=== PATIENT | female | born 1990 | race Hispanic/Latino ===

== ENCOUNTER 2018-06-15 06:08 | Emergency (ER) | payer SELFPAY ==
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
[2018-06-15 09:36] LABS: Urine Blood 1+ (NEG); Urine Glucose NEGATIVE (NEG); Urine Protein NEGATIVE (NEG)
== END 2018-06-15 08:30 | disposition home or self-care (01) ==
LOC: ER 06:08
DX: S39.012A Strain of muscle, fascia and tendon of lower back, initial encounter (principal); S16.1XXA Strain of muscle, fascia and tendon at neck level, initial encounter; T70.0XXA Otitic barotrauma, initial encounter; V49.40XA Driver injured in collision with unspecified motor vehicles in traffic accident, initial encounter; Z72.0 Tobacco use
CPT/HCPCS: 70450; 72125; 81003; 81025; 99284

== ENCOUNTER 2018-09-21 06:04 | Emergency (ER) | payer SELFPAY ==
[2018-09-21] MEDS ORDERED: NEOMY/POLY/HC 1% OTIC DROPS ONE (06:45)
[2018-09-21] MEDS ORDERED: predniSONE 20 MG TAB ONE (06:46)
[2018-09-21] MEDS ORDERED: FAMOTIDINE 20 MG TAB ONE (06:46)
--- NOTE | 2018-09-21 06:59 | EDPHYS ---
Physician Documentation [facility] Name: Federico Carpio Age: 28 yrs Sex: Female : 1990 Arrival Date: 09/21/2018 Time: 06:10 Bed 5 Private MD: ED Physician Cortez Robison HPI: 09/21 06:47 This 28 yrs old Female presents to ER via Ambulatory with complaints of Sore snw Throat. 06:47 The patient presents with sore throat. The patient describes throat pain as raw. Onset: snw The symptoms/episode began/occurred gradually, 3 day(s) ago. Severity of symptoms: At their worst the symptoms were moderate. Associated signs and symptoms: Pertinent positives: fever to 102 for last two days. The patient has experienced similar episodes in the past. The patient has not recently seen a physician. 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 - Social history:: Smoking status: Patient uses tobacco products, denies chronic smoking, but will smoke occasionally. - Ebola Screening: : No symptoms or risks identified at this time. ROS: 06:45 Constitutional: Negative for fever, chills, and weight loss, Eyes: Negative for injury, snw pain, redness, and discharge, Neck: Negative for injury, pain, and swelling, Cardiovascular: Negative for chest pain, palpitations, and edema, Abdomen/GI: Negative for abdominal pain, nausea, vomiting, diarrhea, and constipation, Back: Negative for injury and pain, : Negative for injury, bleeding, discharge, and swelling, MS/Extremity: Negative for injury and deformity, Skin: Negative for injury, rash, and discoloration, Neuro: Negative for headache, weakness, numbness, tingling, and seizure. 06:45 ENT: Positive for ear pain, sore throat. 06:45 Respiratory: Positive for cough. Exam: 06:39 Head/Face: Normocephalic, atraumatic. Eyes: Pupils equal round and reactive to light, snw extra-ocular motions intact. Lids and lashes normal. Conjunctiva and sclera are non-icteric and not injected. Cornea within normal limits. Periorbital areas with no swelling, redness, or edema. ENT: Nares patent. No nasal discharge, no septal abnormalities noted. Tympanic membranes are normal and external auditory canals are clear. Oropharynx with no redness, swelling, or masses, exudates, or evidence of obstruction, uvula midline. Mucous membranes moist. Neck: Trachea midline, no thyromegaly or masses palpated, and no cervical lymphadenopathy. Supple, full range of motion without nuchal rigidity, or vertebral point tenderness. No Meningismus. Chest/axilla: Normal chest wall appearance and motion. Nontender with no deformity. No lesions are appreciated. Cardiovascular: Regular rate and rhythm with a normal S1 and S2. No gallops, murmurs, or rubs. Normal PMI, no JVD. No pulse deficits. 06:39 ENT: Nares patent. No nasal discharge, no septal abnormalities noted. Tympanic membranes are normal to right, left wtih rupture and external auditory canals are clear to right, left with purulent, slightly bloody dc. Oropharynx with mild redness, no swelling, or masses, exudates, or evidence of obstruction, uvula midline. Mucous membranes moist. Abdomen/GI: Soft, non-tender, with normal bowel sounds. No distension or tympany. No guarding or rebound. No evidence of tenderness throughout. Back: No spinal tenderness. No costovertebral tenderness. Full range of motion. Skin: Warm, dry with normal turgor. Normal color with no rashes, no lesions, and no evidence of cellulitis. MS/ Extremity: Pulses equal, no cyanosis. Neurovascular intact. Full, normal range of motion. Neuro: Awake and alert, GCS 15, oriented to person, place, time, and situation. Cranial nerves II-XII grossly intact. Motor strength 5/5 in all extremities. Sensory grossly intact. Cerebellar exam normal. Normal gait. 06:39 Constitutional: The patient appears alert, uncomfortable. 06:39 Respiratory: the patient does not display signs of respiratory distress, Respirations: normal, Breath sounds: are clear throughout, hoarse, harsh cough. Vital Signs: 06:16 BP 139 / 98; Pulse 77; Resp 16; Temp 98.6(O); Pulse Ox 98% on R/A; Weight 61.23 kg (R); ak1 Height 5 ft. 3 in. (160.02 cm) (R); Pain 10/10; 06:16 Body Mass Index 23.91 (61.23 kg, 160.02 cm) ak1 MDM: 06:30 Patient medically screened. snw 07:00 Data reviewed: vital signs, nurses notes. Data interpreted: Pulse oximetry: on room air snw is 98 %. Interpretation: normal. Counseling: I had a detailed discussion with the patient and/or guardian regarding: the historical points, exam findings, and any diagnostic results supporting the discharge/admit diagnosis, the presence of at least one elevated blood pressure reading (>120/80) during this emergency department visit, lab results, the need for further work-up and treatment in the hospital, to return to the emergency department if symptoms worsen or persist or if there are any questions or concerns that arise at home. Special discussion: I have referred the patient to see his PCP for further evaluation of high blood pressure. Based on the history and exam findings, there is no indication for further emergent testing or inpatient evaluation. I discussed with the patient/guardian the need to see the primary care provider for further evaluation of the symptoms. 09/21 06:28 Order name: Flu; Complete Time: 14:06 tl2 09/21 06:28 Order name: Strep; Complete Time: 06:58 tl2 09/21 06:58 Order name: Throat Culture EDMS Administered Medications: 06:42 Drug: predniSONE 40 mg Route: PO; ak1 06:59 Follow up: Response: No adverse reaction ak1 06:42 Drug: Pepcid 20 mg Route: PO; ak1 06:59 Follow up: Response: No adverse reaction ak1 06:42 Drug: Cortisporin Drops 4 drops Route: Otic; Site: left ear; ak1 07:00 Follow up: Response: No adverse reaction ak1 Disposition: 09/21/18 06:59 Discharged to Home. Impression: Acute bronchitis, Acute suppurative otitis media with spontaneous rupture of ear drum - left. - Condition is Stable. - Discharge Instructions: Acute Bronchitis, Adult, Fever, Adult, Hypertension, Eardrum Perforation, [id number], Rehydration, Adult. - Prescriptions for Zyrtec 10 mg Oral Tablet - take 1 tablet by ORAL route once daily As needed; 20 tablet. Prednisone 20 mg Oral Tablet - take 2 tablet by ORAL route once daily for 5 days; 10 tablet. Albuterol Sulfate 90 mcg/actuation - inhale 1-2 puff by INHALATION route every 4-6 hours; 1 Inhaler. - Work release form, Medication Reconciliation Form, Thank You Letter, Antibiotic Education, Prescription Opioid Use form. - Follow up: Private Physician; When: 2 - 3 days; Reason: Recheck today's complaints, Continuance of care, Re-evaluation by your physician. Follow up: Emergency Department; When: As needed; Reason: Worsening of condition. Addendum: 09/29/2018 06:34 Co-signature as Attending Physician, Cortez Robison MD. g s Signatures: Dispatcher [employer] EDMS Felicia Lemus, ELIAS-C SERVICES EXECUTIVE-Csnw Linnea Graves, RN RN ak1 Rowan Reese RN RN hb Cortez Robison MD MD Corrections: (The following items were deleted from the chart) 09/21 07:13 06:59 09/21/2018 06:59 Discharged to Home. Impression: Acute bronchitis; Acute hb suppurative otitis media with spontaneous rupture of ear drum - left. Condition is Stable. Forms are Medication Reconciliation Form, Thank You Letter, Antibiotic Education, Prescription Opioid Use. Follow up: Private Physician; When: 2 - 3 days; Reason: Recheck today's complaints, Continuance of care, Re-evaluation by your physician. Follow up: Emergency Department; When: As needed; Reason: Worsening of condition. snw
--- NOTE | 2018-09-21 06:59 | ER ---
Nurse's Notes [facility] Name: Federico Carpio Age: 28 yrs Sex: Female : 1990 Arrival Date: 09/21/2018 Time: 06:10 Bed 5 Private MD: Diagnosis: Acute bronchitis;Acute suppurative otitis media with spontaneous rupture of ear drum-left Presentation: 09/21 06:17 Presenting complaint: Patient states: throat pain X3 days, nasal drainage, cough, ak1 bilateral ears "stopped up". Transition of care: patient was not received from another setting of care. Onset of symptoms is unknown. Risk Assessment: Do you want to hurt yourself or someone else? Patient reports no desire to harm self or others. Initial Sepsis Screen: Does the patient meet any 2 criteria? No. Patient's initial sepsis screen is negative. Does the patient have a suspected source of infection? No. Patient's initial sepsis screen is negative. Care prior to arrival: None. 06:17 Acuity: ANTONIO 4 ak1 06:17 Method Of Arrival: Ambulatory ak1 Triage Assessment: 06:19 General: Appears in no apparent distress. Behavior is calm, cooperative. Pain: ak1 Complains of pain in throat. EENT: Parent/caregiver reports the patient having pain throat pain nasal discharge. Neuro: No deficits noted. Cardiovascular: No deficits noted. Respiratory: Reports cough that is dry. GI: No signs and/or symptoms were reported involving the gastrointestinal system. : No signs and/or symptoms were reported regarding the genitourinary system. Derm: No signs and/or symptoms reported regarding the dermatologic system. Musculoskeletal: No signs and/or symptoms reported regarding the musculoskeletal system. 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 - Social history:: Smoking status: Patient uses tobacco products, denies chronic smoking, but will smoke occasionally. - Ebola Screening: : No symptoms or risks identified at this time. Screenin:21 Abuse screen: Denies threats or abuse. Denies injuries from another. Nutritional ak1 screening: No deficits noted. Tuberculosis screening: No symptoms or risk factors identified. Fall Risk None identified. Assessment: 06:22 Respiratory: Airway is patent Respiratory effort is even, unlabored. ak1 06:22 Respiratory: Breath sounds are clear. EENT: Throat is clear. ak1 06:22 Reassessment: Patient appears in no apparent distress at this time. No changes from ak1 previously documented assessment. see triage assessment. Vital Signs: 06:16 BP 139 / 98; Pulse 77; Resp 16; Temp 98.6(O); Pulse Ox 98% on R/A; Weight 61.23 kg (R); ak1 Height 5 ft. 3 in. (160.02 cm) (R); Pain 10/10; 06:16 Body Mass Index 23.91 (61.23 kg, 160.02 cm) ak1 ED Course: 06:10 Patient arrived in ED. ag3 06:14 Cortez Robison MD is Attending Physician. gs 06:15 Linnea Graves, RN is Primary Nurse. ak1 06:18 Triage completed. ak1 06:19 Arm band placed on Patient placed in an exam room, on a stretcher, on pulse oximetry, ak1 Patient notified of wait time. 06:21 Patient has correct armband on for positive identification. Bed in low position. Call ak1 light in reach. Side rails up X 1. Pulse ox on. NIBP on. 06:30 Felicia Lemus FNP-C is PHCP. snw 07:12 No provider procedures requiring assistance completed. Patient did not have IV access hb during this emergency room visit. Administered Medications: 06:42 Drug: predniSONE 40 mg Route: PO; ak1 06:59 Follow up: Response: No adverse reaction ak1 06:42 Drug: Pepcid 20 mg Route: PO; ak1 06:59 Follow up: Response: No adverse reaction ak1 06:42 Drug: Cortisporin Drops 4 drops Route: Otic; Site: left ear; ak1 07:00 Follow up: Response: No adverse reaction ak1 Outcome: 06:59 Discharge ordered by . snw 07:12 Discharged to home ambulatory. hb 07:12 Condition: stable 07:12 Discharge instructions given to patient, Instructed on discharge instructions, follow up and referral plans. medication usage, Demonstrated understanding of instructions, follow-up care, medications, Prescriptions given X 3. 07:13 Patient left the ED. hb Signatures: Felicia Lemus, SUBSTITUTE CROSSING GUARD-C SUBSTITUTE CROSSING GUARD-Csnw Linnea Graves RN RN ak1 Rowan Reese RN RN Cortez Camacho MD MD Tasneem Royal3
== END 2018-09-21 07:13 | disposition home or self-care (01) ==
LOC: ER 06:04
DX: J20.9 Acute bronchitis, unspecified (principal); H66.012 Acute suppurative otitis media with spontaneous rupture of ear drum, left ear; Z72.0 Tobacco use
CPT/HCPCS: 87070; 87081; 87804; 99283; J7512

== ENCOUNTER 2018-12-23 10:15 | Emergency (ER) | payer SELFPAY ==
--- NOTE | 2018-12-23 12:14 | EDPHYS ---
Physician Documentation [facility] Name: Federico Carpio Age: 28 yrs Sex: Female : 1990 Arrival Date: 12/23/2018 Time: 10:17 Bed 11 Private MD: ED Physician Santiago Owusu HPI: 12/23 12:10 This 28 yrs old Female presents to ER via Ambulatory with complaints of kb Abscess. 12:10 The patient presents with an abscess of the left labia majora and right labia majora. kb Description: draining, painful. Onset: The symptoms/episode began/occurred 3 week(s) ago. Possible cause(s): unknown. Associated signs and symptoms: Pertinent positives: drainage, pain. Modifying factors: the symptoms are alleviated by nothing, the symptoms are aggravated by pressure, squeezing the lesion and expressing the contents, touching. Severity of symptoms: At their worst the symptoms were moderate, in the emergency department the symptoms are unchanged. 12:12 The patient has not experienced similar symptoms in the past. The patient has not kb recently seen a physician. 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 - Social history:: Smoking status: Patient uses tobacco products, denies chronic smoking, but will smoke occasionally. - Ebola Screening: : No symptoms or risks identified at this time. ROS: 12:08 Constitutional: Negative for fever, chills, and weight loss, Cardiovascular: Negative kb for chest pain, palpitations, and edema, Respiratory: Negative for shortness of breath, cough, wheezing, and pleuritic chest pain, Abdomen/GI: Negative for abdominal pain, nausea, vomiting, diarrhea, and constipation, Back: Negative for injury and pain, MS/Extremity: Negative for injury and deformity, Neuro: Negative for headache, weakness, numbness, tingling, and seizure. 12:08 Skin: Positive for abscess, of the right labia majora, left labia majora and left labia minora. Exam: 12:09 Constitutional: This is a well developed, well nourished patient who is awake, alert, kb and in no acute distress. Head/Face: Normocephalic, atraumatic. Chest/axilla: Normal chest wall appearance and motion. Nontender with no deformity. No lesions are appreciated. Cardiovascular: Regular rate and rhythm with a normal S1 and S2. No gallops, murmurs, or rubs. Normal PMI, no JVD. No pulse deficits. Respiratory: Lungs have equal breath sounds bilaterally, clear to auscultation and percussion. No rales, rhonchi or wheezes noted. No increased work of breathing, no retractions or nasal flaring. Abdomen/GI: Soft, non-tender, with normal bowel sounds. No distension or tympany. No guarding or rebound. No evidence of tenderness throughout. MS/ Extremity: Pulses equal, no cyanosis. Neurovascular intact. Full, normal range of motion. Neuro: Awake and alert, GCS 15, oriented to person, place, time, and situation. Cranial nerves II-XII grossly intact. Motor strength 5/5 in all extremities. Sensory grossly intact. Cerebellar exam normal. Normal gait. 12:09 : Pelvic Exam: External exam: reveals ulcerations on external genitalia, Speculum exam: no bleeding is noted, discharge, is not appreciated, the family/significant other was present for the exam. Vital Signs: 10:29 BP 102 / 74; Pulse 84; Resp 16; Temp 97.8; Pulse Ox 100% on R/A; Weight 59.87 kg; la1 Height 5 ft. 3 in. (160.02 cm); Pain 10/10; 10:29 Body Mass Index 23.38 (59.87 kg, 160.02 cm) la1 MDM: 11:26 Patient medically screened. kb 12:07 Data reviewed: vital signs, nurses notes. Data interpreted: Pulse oximetry: on room air kb is 100 %. Interpretation: normal. Counseling: I had a detailed discussion with the patient and/or guardian regarding: the historical points, exam findings, and any diagnostic results supporting the discharge/admit diagnosis, the need for outpatient follow up, a family practitioner, to return to the emergency department if symptoms worsen or persist or if there are any questions or concerns that arise at home. ED course: Cultures and HSV swab obtained. Pt educated that results will take a few days to come back. . Administered Medications: 12:26 Drug: KeFLEX 500 mg Route: PO; hb 12:26 Follow up: Response: Medication administered at discharge. hb Disposition: 12/23/18 12:13 Discharged to Home. Impression: Ulceration of vulva. - Condition is Stable. - Discharge Instructions: Genital Herpes, Sexually Transmitted Disease, [id number]. - Prescriptions for Keflex 500 mg Oral Capsule - take 1 capsule by ORAL route every 8 hours for 7 days; 21 capsule. - Medication Reconciliation Form, Thank You Letter, Antibiotic Education, Prescription Opioid Use form. - Follow up: Emergency Department; When: As needed; Reason: Worsening of condition. Follow up: Private Physician; When: 2 - 3 days; Reason: Recheck today's complaints, Continuance of care, Re-evaluation by your physician. Addendum: 12/25/2018 07:35 Co-signature as Attending Physician, Santiago Owusu MD I agree with the assessment and c bourgeois plan of care. Signatures: Dispatcher [employer] EDAsuncion Butler, ELIAS-C TINNER HELPER-Santaigo Lorenz MD MD cha Attema, Lee, RN RN la1 Rowan Reese RN RN Corrections: (The following items were deleted from the chart) 12/23 12:30 12:13 12/23/2018 12:13 Discharged to Home. Impression: Ulceration of vulva. Condition hb is Stable. Forms are Medication Reconciliation Form, Thank You Letter, Antibiotic Education, Prescription Opioid Use. Follow up: Emergency Department; When: As needed; Reason: Worsening of condition. Follow up: Private Physician; When: 2 - 3 days; Reason: Recheck today's complaints, Continuance of care, Re-evaluation by your physician. kb
--- NOTE | 2018-12-23 12:14 | ER ---
[facility]'s [facility] Name: Federico Carpio Age: 28 yrs Sex: Female : 1990 Arrival Date: 12/23/2018 Time: 10:17 Bed 11 Private MD: Diagnosis: Ulceration of vulva Presentation: 12/23 10:28 Presenting complaint: Patient states: I have a staff infection "down there" for the la1 last 3 days, pt reports no drainage, states approximately dime sized. Transition of care: patient was not received from another setting of care. Onset of symptoms was December 23, 2018. Risk Assessment: Do you want to hurt yourself or someone else? Patient reports no desire to harm self or others. Initial Sepsis Screen: Does the patient meet any 2 criteria? No. Patient's initial sepsis screen is negative. Does the patient have a suspected source of infection? No. Patient's initial sepsis screen is negative. Care prior to arrival: None. 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 - Social history:: Smoking status: Patient uses tobacco products, denies chronic smoking, but will smoke occasionally. - Ebola Screening: : No symptoms or risks identified at this time. Screenin:00 Abuse screen: Denies threats or abuse. Denies injuries from another. Nutritional hb screening: No deficits noted. Tuberculosis screening: No symptoms or risk factors identified. Fall Risk None identified. Assessment: 12:00 General: Appears in no apparent distress. Behavior is calm, cooperative. Pain: Pain hb currently is 10 out of 10 on a pain scale. Neuro: Level of Consciousness is awake, alert, obeys commands, Oriented to person, place, time, situation. Cardiovascular: Capillary refill < 3 seconds Patient's skin is warm and dry. Respiratory: Airway is patent Respiratory effort is even, unlabored, Respiratory pattern is regular, symmetrical. GI: No signs and/or symptoms were reported involving the gastrointestinal system. : Reports groin pain. EENT: No signs and/or symptoms were reported regarding the EENT system. Derm: Skin has lesions on labia. Musculoskeletal: No signs and/or symptoms reported regarding the musculoskeletal system. Vital Signs: 10:29 BP 102 / 74; Pulse 84; Resp 16; Temp 97.8; Pulse Ox 100% on R/A; Weight 59.87 kg; la1 Height 5 ft. 3 in. (160.02 cm); Pain 06/28; 10:29 Body Mass Index 23.38 (59.87 kg, 160.02 cm) la1 ED Course: 10:17 Patient arrived in ED. rg4 10:28 Triage completed. la1 10:29 Arm band placed on left wrist. la1 11:25 Asuncion Tyson [facility]-C [facility]. kb 11:25 Santiago Owusu MD is Attending Physician. kb 12:00 Patient has correct armband on for positive identification. Bed in low position. Call hb light in reach. 12:26 Rowan Reese, RN is Primary Nurse. hb 12:29 No provider procedures requiring assistance completed. Patient did not have IV access hb during this emergency room visit. Administered Medications: 12:26 Drug: KeFLEX 500 mg Route: PO; hb 12:26 Follow up: Response: Medication administered at discharge. hb Outcome: 12:13 Discharge ordered by . kb 12:29 Discharged to home ambulatory, with family. hb 12:29 Condition: stable 12:29 Discharge instructions given to patient, Instructed on discharge instructions, follow up and referral plans. medication usage, wound care, Demonstrated understanding of instructions, follow-up care, medications, wound care, Prescriptions given X 1. 12:30 Patient left the ED. hb Signatures: Asuncion Tyson FNP-C FNP-Ckb Attema, Lee, RN RN la1 Rowan Reese, Divina Ricci RN rg4
[2018-12-23] MEDS ORDERED: CEPHALEXIN 250 MG CAP ONE (12:34)
== END 2018-12-23 12:30 | disposition home or self-care (01) ==
LOC: ER 10:15
DX: N76.6 Ulceration of vulva (principal); Z72.0 Tobacco use
CPT/HCPCS: 87252; 99283